=== PATIENT | female | born 1990 | race Hispanic/Latino ===

== ENCOUNTER 2017-09-24 20:31 | Emergency (ER) | payer OTHER ==
[~2017-09-24] VITALS: Ht 165.1 cm; Wt 91.4 kg
== END 2017-09-24 21:17 | disposition home or self-care (01) ==
LOC: FSED 20:31
DX: H92.03 Otalgia, bilateral (principal); M26.623 Arthralgia of bilateral temporomandibular joint; K05.10 Chronic gingivitis, plaque induced
CPT/HCPCS: 99283